=== PATIENT | female | born 1995 | race African-American/Black ===

== ENCOUNTER 2016-10-25 16:59 | Emergency (ER) | payer SELFPAY ==
[2016-10-25 17:01] VITALS: BP 133/70; PULSE 93; RESP 16; TEMP 98.3; O2SAT 99
[2016-10-25] MEDS ORDERED: LEVE500 PO (17:05)
[2016-10-25] MEDS ORDERED: LORazepam 2 MG/ML VIAL ONE (17:12)
--- NOTE | 2016-10-25 17:43 | PD ---
HPI Chief Complaint: Seizure Time Seen by Provider: 17:40 Travel History International Travel<30 days: No Contact w/Intl Traveler<30days: No Traveled to known affect area: No History of Present Illness HPI 21-year-old female with history of seizure disorder brought in by an insect or having a seizure. The patient is on Keppra. She was traveling to [place] with her mother. Shortly after arrival to the emergency department the patient became very agitated and wanted to sign AMA. After speaking with her the patient denies any physical complaints. She states she feels well. All of her physicians are in [place] where she lives. She is adamant that she does not want a workup and would like to leave AMA. She has the capacity to make this decision. She understands that there are risks of leaving AMA including but not limited to and permanent disability. She was told that she should return to the emergency department if she has worsening symptoms or any other concerns. AMA: The risks of leaving against medical advice without further evaluation treatment were discussed with the patient. These risks include cardiac dysfunction, cardiac dysrhythmia, possible heart attack, possible stroke or . The patient indicated understanding of these risks and appeared to have the capacity to make this decision. The patient's mom is here and will take the patient home. PFS Past Medical History Seizures: Yes ?: Not Past Surgical History Surgical History: No Previous Surgery Social History Alcohol Use: Yes (occasional) Tobacco Use: No Substance Use: No Allergies-Medications (Allergen,Severity, Reaction): Coded Allergies: No Known Allergies (Unverified , 10/25/16) Reported Meds & Prescriptions Reported Meds & Active Scripts Active Reported Keppra (Levetiracetam) 500 Mg Tab 500 Mg PO BID Review of Systems Except as stated in HPI: all other systems reviewed are Neg Physical Exam Narrative GENERAL: Well-developed, well-nourished, comfortable, no acute distress. SKIN: Warm and dry. HEAD: Atraumatic. Normocephalic. EYES: Pupils equal and round. No scleral icterus. No injection or drainage. ENT: No nasal bleeding or discharge. Mucous membranes pink and moist. NECK: Trachea midline. No JVD. CARDIOVASCULAR: Regular rate and rhythm. No murmur appreciated. RESPIRATORY: No accessory muscle use. Clear to auscultation. Breath sounds equal bilaterally. GASTROINTESTINAL: Abdomen soft, non-tender, nondistended. Hepatic and splenic margins not palpable. MUSCULOSKELETAL: No obvious deformities. No clubbing. No cyanosis. No edema. NEUROLOGICAL: Awake and alert. No obvious cranial nerve deficits. Motor grossly within normal limits. Normal speech. PSYCHIATRIC: Appropriate mood and affect; insight and judgment normal. Data Data Last Documented VS Vital Signs Date Time Temp Pulse Resp B/P Pulse Ox O2 Delivery O2 Flow Rate FiO2 10/25/16 17:01 98.3 93 16 133/70 99 Orders Lorazepam Inj (Ativan Inj) (10/25/16 17:12) [facility] Medical Decision Making Medical Screen Exam Complete: Yes Emergency Medical Condition: Yes Differential Diagnosis Breakthrough seizure, medication noncompliance, elected to let abnormality, intracranial abnormality less likely Narrative Course see HPI Diagnosis Primary Impression: Breakthrough seizure Additional Impression: Left against medical advice Disposition: 07 AGAINST MEDICAL ADVICE Condition: Stable Mitchell Garcia MD Oct 25, 2016 17:43
== END 2016-10-25 18:12 | disposition left against medical advice (07) ==
LOC: NEPA 16:59
DX: R56.9 Unspecified convulsions (principal)
CPT/HCPCS: 99284; J2060